=== PATIENT | female | born 1970 | race Two or more races ===

== ENCOUNTER 2024-04-11 10:31 | Emergency (ER) | payer OTHER ==
[2024-04-11 11:14] VITALS: BP 134/78; PULSE 68; RESP 18; TEMP 97.9; BMI 31.5
[2024-04-11] MEDS ORDERED: KETOROLAC TROMETHAMINE 30 MG/1 ML VIAL ONE (12:11)
[2024-04-11] MEDS: KETOROLAC TROMETHAMINE 30 MG/1 ML VIAL IM ONE (12:13)
== END 2024-04-11 12:58 | disposition home or self-care (01) ==
LOC: JERFT 10:31
PROC: 3E0133Z Introduction of Anti-inflammatory into Subcutaneous Tissue, Percutaneous Approach (ICD-10-PCS; principal; 2024-04-11)
DX: M54.50 Low back pain, unspecified (principal)
CPT/HCPCS: 99284-25